=== PATIENT | male | born 1965 | race African-American/Black ===

== ENCOUNTER 2021-11-06 20:38 | Emergency (ER) | payer OTHER ==
[~2021-11-06] VITALS: Ht 188 cm; Wt 75.0 kg
[2021-11-06] MEDS ORDERED: LEVE750T10 PO (21:10)
[2021-11-06] MEDS ORDERED: AMLO10TA55 PO (21:10)
[2021-11-06 22:23] LABS: COVID AG,FIA SOURCE NASAL SWAB
[2021-11-06 22:47] LABS: APPEARANCE,URINE HAZY (CLEAR); BILIRUBIN,URINE NEGATIVE (NEGATIVE); GLUCOSE, URINE (UA) NEGATIVE (NEGATIVE); KETONES,URINE NEGATIVE (NEGATIVE); LEUKOCYTE ESTERASE ,URINE MODERATE (NEGATIVE); OCCULT BLOOD,URINE NEGATIVE (NEGATIVE); PROTEIN,URINE TRACE mg/dL (NEGATIVE); SPECIFIC GRAVITIY, URINE 1.016 (1.003-1.030); UROBILINOGEN,URINE <=1.0 mg/dL (<=1.0)
[2021-11-06 22:54] LABS: AMPHET/METH SCREEN,URINE NEGATIVE (NEGATIVE); BARBITURATE SCREEN, URINE NEGATIVE (NEGATIVE); BENZODIAZEPINES SCREEN,URINE NEGATIVE (NEGATIVE); CANNABINOID SCREEN,URINE NEGATIVE (NEGATIVE); COCAINE SCREEN,URINE POSITIVE (NEGATIVE); METHADONE SCREEN, URINE NEGATIVE (NEGATIVE); OPIATE SCREEN,URINE NEGATIVE (NEGATIVE)
[2021-11-06 22:57] LABS: PHENCYCLIDINE SCREEN,URINE NEGATIVE (NEGATIVE)
[2021-11-06 23:27] LABS: NITRATE,URINE POSITIVE (NEGATIVE)
[2021-11-06 23:29] LABS: BACTERIA,URINE Many /HPF (None Seen); CALCIUM OXALATE CRYSTALS,UR Rare /LPF (None Seen)
[2021-11-06 23:30] LABS: RBC,URINE None Seen /HPF (0-2)
[2021-11-07] MEDS ORDERED: CEPHALEXIN MONOHYDRATE 500 MG CAPSULE PO ONE (00:30)
[2021-11-07 01:32] VITALS: BP 144/71
[2021-11-07] MEDS ORDERED: CEPH-558 PO (01:45)
== END 2021-11-07 02:07 | disposition home or self-care (01) ==
LOC: EMS 20:40
DX: N39.0 Urinary tract infection, site not specified (principal); F14.10 Cocaine abuse, uncomplicated; F10.10 Alcohol abuse, uncomplicated; Z20.822 Contact with and (suspected) exposure to COVID-19
CPT/HCPCS: 70450; 71045; 81001; 87086; 99285